=== PATIENT | female | born 1980 | race Caucasian/White ===

== ENCOUNTER 2018-04-30 00:10 | Emergency (ER) | payer BC, OTHER ==
--- NOTE | 2018-04-30 00:47 | EDM.PDOC ---
ED HPI GENERAL MEDICAL PROBLEM - General Chief Complaint: Gastrointestinal Problem Stated Complaint: Severe cramping w bloody stool Time Seen by Provider: 04/30/18 00:30 Source of Information: Reports: Patient History Limitations: Reports: No Limitations - History of Present Illness Onset: Today Duration: Hour(s):, Recurring Location: Reports: Abdomen Severity: Moderate Improves with: Reports: None Worsens with: Reports: None Associated Symptoms: Reports: No Other Symptoms ED ROS GENERAL - Review of Systems Review Of Systems: See Below Constitutional: Reports: No Symptoms HEENT: Reports: No Symptoms Respiratory: Reports: No Symptoms Cardiovascular: Reports: No Symptoms Endocrine: Reports: No Symptoms GI/Abdominal: Reports: Bloody Stool, Mucous in Stool : Reports: No Symptoms Musculoskeletal: Reports: No Symptoms Skin: Reports: No Symptoms Neurological: Reports: No Symptoms Psychiatric: Reports: No Symptoms Hematologic/Lymphatic: Reports: No Symptoms Immunologic: Reports: No Symptoms Free Text/Narrative/Comment: Patient is a 37-year-old who presented to the ER with chief complaint of bloody mucousy stool she noted in the toilet this is the first time this happens to her ED EXAM, GI/ABD - Physical Exam Exam: See Below Course - Orders/Labs/Meds Labs: Laboratory Tests 04/30/18 04/30/18 Range/Units 00:55 00:55 WBC 14.9 H (4.0-10.2) K/uL RBC 4.56 (3.77-5.09) M/uL Hgb 14.3 (11.7-15.5) g/dL Hct 41.2 (34.0-46.0) % MCV 90.4 (84.0-98.0) fL MCH 31.4 (28.2-33.3) pg MCHC 34.7 (31.7-36.0) g/dL RDW 13.4 (11.2-14.1) % Plt Count 244 (150-350) K/uL Neut % (Auto) 87.9 H (45.0-80.0) % Lymph % (Auto) 7.9 L (10.0-50.0) % [place]born % (Auto) 4.0 (2.0-14.0) % Eos % (Auto) 0.1 (0.0-5.0) % Baso % (Auto) 0.1 (0.0-2.0) % Neut # (Auto) 13.08 H (1.40-7.00) K/uL Lymph # (Auto) 1.17 (0.50-3.50) K/uL Sanborn # (Auto) 0.60 (0.00-1.00) K/uL Eos # (Auto) 0.02 (0.00-0.50) K/uL Baso # (Auto) 0.02 (0.00-0.20) K/uL Sodium 137 (136-145) mmol/L Potassium 4.1 (3.5-5.1) mmol/L Chloride 100 (98-107) mmol/L Carbon Dioxide 29.4 (21.0-32.0) mmol/L BUN 18 (7-18) mg/dL Creatinine 0.73 (0.51-1.17) mg/dL Est Cr Clr Drug Dosing TNP Estimated GFR (MDRD) > 60 mL/min Glucose 122 H (74-106) mg/dL Calcium 9.5 (8.5-10.1) mg/dL Total Bilirubin 0.5 (0.2-1.0) mg/dL AST 15 (15-37) U/L ALT 29 (12-78) U/L Alkaline Phosphatase 73 (46-116) IU/L Total Protein 7.1 (6.4-8.2) g/dL Albumin 4.2 (3.4-5.0) g/dL Departure - Departure Time of Disposition: 02:26 Disposition: Home, Self-Care 01 Condition: Fair Clinical Impression: Bleeding - Discharge Information *PRESCRIPTION DRUG MONITORING PROGRAM REVIEWED*: No *COPY OF PRESCRIPTION DRUG MONITORING REPORT IN PATIENT KATLIN: No Referrals: Linnette Teague PA-C [Primary Care Provider] - Forms: ED Department Discharge Care Plan Goals: Patient will be referred to general surgery for colonoscopy.
[2018-04-30 01:12] LABS: CHLORIDE,CL 100 mmol/L (98-107); SODIUM,NA 137 mmol/L (136-145)
== END 2018-04-30 02:55 | disposition home or self-care (01) ==
LOC: LL.ED 00:10
DX: K52.9 Noninfective gastroenteritis and colitis, unspecified (principal); K62.5 Hemorrhage of anus and rectum
CPT/HCPCS: 36415; 80053; 82272; 85025; 99283

== ENCOUNTER 2018-05-01 07:11 | Day surgery (SDC) | payer OTHER, BC ==
[~2018-05-01 07:11] MED LIST: Midazolam 1 MG/ML 2 ML SDV ONE; Propofol 200 MG/20 ML SDV ONE; Sodium Chloride 0.9% 10 ML Syringe FLUSH PRN
[2018-05-01] MEDS: Lactated Ringers 1,000 ML IV SCH (07:51)
[2018-05-01] MEDS ORDERED: Propofol 200 MG/20 ML SDV ONE (08:45)
[2018-05-01] MEDS ORDERED: Midazolam 1 MG/ML 2 ML SDV ONE (08:45)
--- NOTE | 2018-05-01 08:45 | PCM.HPR ---
H & P Addendum review - H & P Addendum Review Date of Original H & P: 04/30/18 Date Reviewed: 05/01/18 Time Reviewed: 08:44 Patient was Examined: No Changes
--- NOTE | 2018-05-01 09:20 | PCM.OPNOTE ---
- General Post-Op/Procedure Note Date of Surgery/Procedure: 05/01/18 Operative Procedure(s): Colonoscopy with Bx's Findings: Left and Sig Colitis from 30 to 70 cm Pre Op Diagnosis: Hematochezia Post-Op Diagnosis: Same Anesthesia Technique: MAC Primary Surgeon: Inocente rAce Pathology: Colon Bx's Complications: None Condition: Good
[2018-05-01 12:47] VITALS: BP 110/52
--- NOTE | 2018-05-01 13:33 | OR ---
+ Date of Procedure: 05/01/2018 PREOPERATIVE DIAGNOSIS: Hematochezia. POSTOPERATIVE DIAGNOSIS: Colitis of the left and sigmoid colon. PROCEDURE: Colonoscopy with multiple biopsies. ANESTHESIA: IV sedation. PROCEDURE IN DETAIL: The patient was brought to the procedure room. She was placed on her left side and IV sedation administered. Digital rectal exam was performed, which was normal. Colonoscope was inserted and advanced to the level of the cecum without difficulty. Cecal position was confirmed by identifying the appendiceal lumen and the ileocecal valve. Prep was good and surfaces were well visualized. I was unable to intubate into the terminal ileum. Upon withdrawing the scope, the ascending and transverse colon were normal. In the left colon and sigmoid colon, from 30 cm up to 70 cm, was moderately severe colitis with patchy areas and some superficial ulcerations. This was the obvious source of her bleeding. I did take biopsies from all segments of her colon and rectum. The distal sigmoid colon from 30 cm was normal. The rectum on retroflexion was normal. Air was removed and the scope withdrawn. The patient tolerated the procedure well and returned to recovery in stable condition. Findings are most consistent with ulcerative colitis. I spoke with Dr. Nasim Tavarez and we will start her on a prednisone taper, starting 40 mg daily and tapering by 10 mg per week. She will follow up with Dr. Tavarez next week for biopsy results. CHRISTOPHER LAMAS MD /[id number] MTDD
--- NOTE | 2018-05-01 18:09 | OR ---
Date of Procedure: 05/01/2018 PREOPERATIVE DIAGNOSIS: Hematochezia. POSTOPERATIVE DIAGNOSIS: Left colitis. PROCEDURE: Colonoscopy with multiple biopsies. ANESTHESIA: IV sedation. PROCEDURE IN DETAIL: The patient was brought to the procedure room where she was placed on her left side and IV sedation administered. Digital rectal exam was performed, which was normal. Colonoscope was inserted and advanced to the level of the cecum without difficulty. Cecal position was confirmed by identifying the appendiceal lumen and ileocecal valve. Prep was good and surfaces were well visualized. Upon withdrawing the scope, the ascending and transverse colon were normal. In the descending colon at 70 cm was the beginning of some inflammatory, ulcerated areas sporadically. As I got into the sigmoid colon at about 40 cm, it was more severe and diffuse and circumferential with a granular appearance. There was no active bleeding at this time. I did take several biopsies through all segments of the colon. Beginning at 30 cm, the colon mucosal surfaces again appeared normal all the way to the rectum, which was normal. Air was removed and the scope withdrawn. The patient tolerated the procedure well and returned to recovery in stable condition. The patient will be started on a prednisone taper 40 mg daily and decrease by 10 mg weekly. The diagnosis is most consistent with ulcerative colitis. She will follow up with Dr. Tavarez next week for review of biopsies. CHRISTOPHER LAMAS MD /[id number]
== END 2018-05-01 12:16 | disposition home or self-care (01) ==
LOC: LL.SDS 07:11
PROVIDERS: ATTEND Surgery
DX: K52.9 Noninfective gastroenteritis and colitis, unspecified (principal)
CPT/HCPCS: J2250; J2704; J7120

== ENCOUNTER → 2019-02-03 | Outpatient (CLI) | payer OTHER | LOC: LL.US 08:22 | PROVIDERS: ATTEND Physician Assistant | DX: R00.2 Palpitations (principal) | CPT/HCPCS: 93306 ==

== ENCOUNTER 2021-11-25 11:02 | Emergency (ER) | payer BC ==
[2021-11-25 12:05] LABS: PTT,PARTIAL THROMBOPLSTIN TIME 25.2 SEC (23.6-29.8)
[2021-11-25 12:21] LABS: ANION GAP 7.6 meq/L (7-15); CHLORIDE,CL 107 mmol/L (98-107); SODIUM,NA 142 mmol/L (136-145)
[2021-11-25 12:22] LABS: ESTIMATED GFR 114 mL/min (>=60)
[2021-11-25] MEDS ORDERED: Sodium Chloride 0.9% 1,000 ML IV ONE (12:32)
[2021-11-25] MEDS ORDERED: HYDROmorphone 0.5 MG/0.5 ML Syringe IVPUSH ONE (12:35)
== END 2021-11-25 14:00 | disposition home or self-care (01) ==
LOC: LL.ED 11:02
DX: K92.2 Gastrointestinal hemorrhage, unspecified (principal); E03.9 Hypothyroidism, unspecified; Z88.2 Allergy status to sulfonamides; Z79.899 Other long term (current) drug therapy
CPT/HCPCS: 36415; 80053; 81001; 81025; 82150; 83690; 83735; 84100; 85025; 85610; 85730; 86140; 96361; 96374; 99284; J1170; J7030

== ENCOUNTER 2021-11-30 09:39 | Day surgery (SDC) | payer BC ==
[~2021-11-30 09:39] MED LIST changes: -Midazolam 1 MG/ML 2 ML SDV ONE; -Sodium Chloride 0.9% 10 ML Syringe FLUSH PRN
[2021-11-30] MEDS ORDERED: Lactated Ringers 1,000 ML IV SCH (10:15)
[2021-11-30] MEDS ORDERED: Sodium Chloride 0.9% 10 ML Syringe FLUSH PRN (11:21)
[2021-11-30] MEDS ORDERED: Propofol 200 MG/20 ML SDV ONE (12:43)
== END 2021-11-30 14:35 | disposition home or self-care (01) ==
LOC: LL.SDS 09:39
PROVIDERS: ATTEND Surgery
DX: K52.9 Noninfective gastroenteritis and colitis, unspecified (principal); K64.8 Other hemorrhoids; K31.89 Other diseases of stomach and duodenum; F41.1 Generalized anxiety disorder; E03.9 Hypothyroidism, unspecified; F51.01 Primary insomnia; K21.9 Gastro-esophageal reflux disease without esophagitis; I10 Essential (primary) hypertension; G62.9 Polyneuropathy, unspecified; F32.A Depression, unspecified; Z79.899 Other long term (current) drug therapy; Z79.82 Long term (current) use of aspirin; Z88.2 Allergy status to sulfonamides
CPT/HCPCS: 00813; 36415; 43239; 45380; 84703; J2704; J7120

== ENCOUNTER 2023-10-26 20:38 | Emergency (ER) | payer BC ==
[2023-10-26] MEDS: Lidocaine 1% 5 ML VIAL INJECT ONE (21:38)
[2023-10-26] MEDS: Diphtheria,Pertussis(Acell),Tetanus Vaccine 0.5 ML Syringe IM ONE (21:57)
[2023-10-26] MEDS: Bacitracin Oint 1 GM U/D Packet TOP ONE (21:59)
== END 2023-10-26 22:05 | disposition home or self-care (01) ==
LOC: LL.ED 20:38
DX: Z23 Encounter for immunization (principal); S61.217A Laceration without foreign body of left little finger without damage to nail, initial encounter; I10 Essential (primary) hypertension; K21.9 Gastro-esophageal reflux disease without esophagitis; E03.9 Hypothyroidism, unspecified; Z88.2 Allergy status to sulfonamides; Z79.890 Hormone replacement therapy; Z79.899 Other long term (current) drug therapy; W26.8XXA Contact with other sharp object(s), not elsewhere classified, initial encounter
CPT/HCPCS: 12001; 90471; 90715; 99282-25; 99283; J3490